=== PATIENT | female | born 1980 | race Caucasian/White ===

== ENCOUNTER 2024-06-22 06:06 | Day surgery (SDC) | payer OTHER, SELFPAY ==
[2024-06-04 11:13] LABS: ALT (SGPT) 64 U/L (0-35); AST (SGOT) 49 U/L (14-36); Alkaline Phosphatase 71 U/L (38-126); Blood Urea Nitrogen 13 mg/dl (7-17); Calcium 9.9 mg/dl (8.4-10.2); Carbon Dioxide 24 mmol/L (22-30); Chloride 104 mmol/L (98-107); Glucose 101 mg/dl (70-99); Potassium 4.7 mmol/L (3.5-5.1); Sodium 140 mmol/L (135-145); Total Bilirubin 0.5 mg/dl (0.2-1.3); Total Protein 7.9 g/dl (6.3-8.2); eGFR > 60.00
[2024-06-04 11:26] LABS: % Basophils 0.4 % (0-2); % Eosinophils 0.7 % (0-6); % Immature Granulocytes 1.9 % (0-0.5); % Lymphocytes 34.5 % (20.5-51.1); % Monocytes 8.7 % (1.7-9.3); % Neutrophils 53.8 % (42.2-75.2); Absolute Eosinophils 0.1 10^3/uL (0-0.7); Absolute Immature Granulocytes 0.2 10^3/uL (0-0.05); Absolute Lymphocytes 3.3 10^3/uL (1.2-3.4); Absolute Monocytes 0.8 10^3/uL (0.1-0.6); Absolute Neutrophils 5.1 10^3/uL (1.4-6.5); Mean Corp Hgb Conc. 33.3 g/dL (33.0-37.0); Mean Corpuscular Hgb 29.4 pg (27.0-31.0); Mean Corpuscular Volume 88.2 fL (81.0-99.0); Mean Platelet Volume 10.7 fL (7.4-10.4); Nucleated Red Blood Cells % 0 %; Platelet Count 477 10^3/uL (130-400); Red Blood Cell Count 4.42 10^6/uL (4.20-5.40); Red Cell Dist. Width 14.6 % (11.5-14.5); White Blood Cell Count 9.4 10^3/uL (4.8-10.8)
[2024-06-04 13:34] VITALS: BMI 44.0
[2024-06-22] VITALS (8 sets, daily range): BP systolic 122–159; BP diastolic 80–108; BMI 44.0
[2024-06-22] MEDS: CELEBREX 200 MG PO (06:33)
[2024-06-22] MEDS: TYLENOL 1000 MG PO (06:33)
[2024-06-22] MEDS: NEURONTIN 300 MG PO (06:33)
[2024-06-22] MEDS: NORMOSOL-R 1000 IV (06:47)
--- NOTE | 2024-06-22 07:01 | PTCARENOTE ---
Dr. Bravo was tiger texted at 6:08 to make him aware that the patient has had allergy symptoms in the last few days and last night she started not to feel well. She has nasal congestion and is constantly clearing her throat. She verbalized that she
feels tired and run down. Lungs CTA, Temp is 99.2, BP is 159/108. Patient would like to proceed with procedure. Dr. Uribe was also made aware.
--- NOTE | 2024-06-22 08:28 | OR.RPT ---
Operative Report
Operative Report
Operative Report
Date of surgery: June 22, 2024
Preoperative diagnosis Vulvar intraepithelial neoplasia 3
Postop diagnosis: Same
Surgeon: Leo Bravo MD
Assist: Mark Anthony Hutchison PA-C
The assistance of Mark Anthony Hutchison was required due to the complexity of the procedure. During the procedure Mark Anthony Hutchison assisted with retraction, resection, and closure of the wound.
Anesthesia General LMA intubation
Procedure:
1. COlposcopy of vagina and vulva with biopsy
2. partial simple vulvectomy (posterior fourchette a portion of the perineal body)
Estimated blood loss 5 cc
Complications : none
Procedure in detail: This patient is brought to the operating room for definitive excision of recently diagnosed severe dysplasia involving vulva. She was placed in supine position, general anesthesia was induced and she was intubated with LMA.
She was positioned with yellowfin stirrups in dorsal lithotomy, hair involving right and left labia perineal body and perianal skin was clipped.
the patient was prepped with ChloraPrep on the skin and Betadine and vagina. Timeout procedure was carried out she was properly identified, she received Ancef 2 g IV for prophylaxis. The skin was soaked in acetic acid 5% for 3 minutes and the
outline of the lesion was better defined. We noted that along the posterior fourchette there is an acetowhite epithelium, otherwise it was normal withour lesions in vagina and vulva. Prior to making skin incision the incision line was
infiltrated with 1% lidocaine with epinephrine. Skin incision was made in an tringular fashion with apex in mid perineal body, and right alleft borders and apices at post right and left labia minora fashion involving the posterior vulva . Skin
incision was made with electrocautery was used to excise skin and subcutaneous tissue down to the level of deep fat. Good hemostasis was established the specimen was tagged using double strands at the right posterior labia minora, single strand
suture was placed on the right labia minora apex. I used a series of horizontal mattress sutures using 3-0 Monocryl to reapproximate this opening of the skin and and then continued similarly along the posterior aspect of the right and left labia
minora.. I examined the anus and vagina and there was no injury or communication. 10 cc 0.25% Marcaine was applied to the incision. Silvadene was applied to the incision and dressing was applied. Counts of laps instruments and needle was correct
x 2. I was present and scrubbed for entire procedure as dictated above.
Disposition: To PACU extubated stable
== END 2024-06-22 10:25 | disposition home or self-care (01) ==
LOC: SDS 06:06
PROVIDERS: ATTENDING PHYSICIAN Obstetrics & Gynecology Gynecologic Oncology; FAMILY PHYSICIAN Nurse Practitioner Family; OTHER PHYSICIAN Internal Medicine Gastroenterology
DX: D07.1 Carcinoma in situ of vulva (principal)
CPT/HCPCS: 56620; 57421; 88309; 36415; 80053; 85025; 86850; 86900; 86901; 88341; 88342